=== PATIENT | female | born 1930 | race Caucasian/White ===

== ENCOUNTER → 2017-07-26 | Outpatient (CLI) | payer MEDICARE, BC ==
--- NOTE | 2017-07-26 15:16 | XR ---
EXAMINATION TYPE: XR hand complete LT DATE OF EXAM: 07/26/2017 COMPARISON: NONE HISTORY: Pain TECHNIQUE: Three views are submitted. FINDINGS: Diffuse severe osteopenia. Severe arthropathy of the MCP and DIP joint first digit and first carpomet acarpal joint. Severe arthropathy of the trapezius scaphoid joint. Chondrocalcinosis noted. There is a displaced fracture involving the neck of the fifth metacarpal. Arthropathy involving all DIP joints with central erosion involving the fifth digit noted. IMPRESSION: 1. Displaced fracture distal fifth metacarpal. 2. Correlate for erosive osteoarthritis 3. Subluxation distal phalanx first digit may be chronic correlate clinically.
--- NOTE | 2017-07-26 15:17 | XR ---
EXAMINATION TYPE: XR wrist complete LT DATE OF EXAM: 07/26/2017 COMPARISON: NONE HISTORY: Pain TECHNIQUE: Four views submitted. FINDINGS: There is displaced fracture involving the distal fifth metacarpal. Severe arthropathy involving the w rist with chondrocalcinosis noted. Diffuse osteopenia is seen. IMPRESSION: 1. Displaced fracture fifth metacarpal 2. Severe arthritic changes correlate for osteoarthritis.
== END ==
LOC: RADXRMAIN 14:51
PROVIDERS: ATTEND Internal Medicine
DX: S62.397A Other fracture of fifth metacarpal bone, left hand, initial encounter for closed fracture (principal); S63.102A Unspecified subluxation of left thumb, initial encounter; W19.XXXA Unspecified fall, initial encounter; M15.4 Erosive (osteo)arthritis